=== PATIENT | male | born 1985 | race Caucasian/White ===

== ENCOUNTER 2024-10-16 09:51 | Emergency (ER) | payer BC, SELFPAY ==
[2024-10-16 09:52] VITALS: BP 96/63; PULSE 62; RESP 16; TEMP 36.3; O2SAT 96
--- NOTE | 2024-10-16 10:00 | DI.CT_ITS ---
Exam(s) CT ABDOMEN PELVIS WO EXAM: CT ABDOMEN PELVIS WO CLINICAL HISTORY: left flank pain, eval for stone. TECHNIQUE: Imaging Protocol: Axial computed tomography images with coronal and sagittal reformatted images were created and reviewed CONTRAST MATERIAL: Intravenous: none Oral: None COMPARISON: No exams were available for comparison FINDINGS: VISUALIZED LUNG BASES: No nodules nor pleural effusions evident. ABDOMEN: There is no ascites. LIVER: There are no obvious focal hepatic lesions evident of this noninfused study. GALLBLADDER/BILIARY: No obvious gallbladder pathology. CBD is not dilated. PANCREAS: No evidence of pancreatic mass nor dilatation of the pancreatic duct. SPLEEN: Spleen is not enlarged. No obvious intrasplenic lesions. ADRENALS: There are no significant adrenal masses. KIDNEYS:Bilateral nephrolithiasis. There are tiny punctate calculi in both kidneys. There is also a nother calculus in the proximal left ureter measuring 2-3 mm with mild dilatation left collecting sys tem above this level. The left ureter below this level is not dilated and there are no additional ca lculi seen in the remainder of the left ureter nor in the nondistended urinary bladder lumen. There are no solid renal masses.. ABDOMINAL AORTA: Abdominal aorta is not enlarged. LYMPH NODES: There is no retroperitoneal nor paraaortic adenopathy. ABDOMINAL WALL: No evidence of significant anterior abdominal wall nor inguinal hernia. GI: There is no evidence of bowel obstruction, free air, nor abscess. PELVIS: LYMPH NODES: There is no intrapelvic nor inguinal adenopathy. GI: No evidence of appendicitis.No evidence of sigmoid diverticulitis. URINARY BLADDER: No calculi nor obvious masses evident REPRODUCTIVE: Prostate size normal. OSSEOUS: No significant osseous lesions. IMPRESSION: 1. There is a 3 millimeter calculus in the proximal left ureter with mild dilatation of the left harshil ecting system above this level. There there are 2 remaining punctate present nonobstructive calculi in left kidney and a single punctate nonobstructive calculus in the inferior pole of the opposite-rig ht kidney. 2. Urinary bladder appears unremarkable. RADIATION DOSE DELIVERED: 859.44mGy.cm Total DLP DATA REPOSITORY: All CT scans at this facility are submitted to the National Radiology Data Registry (NRDR) Dose Index Registry (DIR) with the [employer] (A[employer]). RADIATION OPTIMIZATION: All CT scans at this facility use at least one of these dose optimization te chniques: automated exposure control; mA and/or kV adjustment per patient size (includes targeted exa ms where dose is matched to clinical indication); or iterative reconstruction.
--- NOTE | 2024-10-16 10:06 | ED.GENADUL_ITS ---
Discharge Plan Disposition Patient Disposition: Home Condition: Good Discharge Details Clinical Impression: Kidney stone on left side Primary Care Provider: None,None ED Provider: Vince Loomis Home Meds and New Rx's Prescriptions: New tamsulosin [Flomax] 0.4 mg capsule 0.4 mg PO DAILY Qty: 14 0RF ketorolac 10 mg tablet 10 mg PO TID 5 Days Qty: 15 0RF Discharge Instructions Instructions: Kidney Stone Diet, Kidney Stone, Adult ED Additional Instructions: At this time you have evidence of a small kidney stone. This is likely the cause of your symptoms. This should pass within the next 12 to 48 hours, if not earlier. Please drink plenty of fluids, 10 to 12 cups/day at least. Please make sure that you are drinking lemon juice with each of these. Please take 10mg of Ketorolac every 8 hours and 1000 mg of Tylenol every 6 hours as needed for pain. These are the maximum doses of these medicines. Please take the Flomax as directed. This will help in expediting the passage of your kidney stone. If your pain stops, you can stop taking the Flomax. Please strain your urine to collect the stone. This can then be analyzed by your family doctor. If you do not have resolution of your symptoms after 48 to 72 hours please follow-up closely with your family doctor or return here for reassessment. If you notice any worsening of your symptoms, or any new symptoms such as inability to urinate, vomiting, diarrhea, fever, chills, shortness of breath, chest pain, numbness, weakness, or fainting , please return immediately to the emergency department for reevaluation. Please follow up with your primary care provider as soon as possible for reassessment and reevaluation. As always, it was a pleasure participating in your medical care today. Referrals: Isidro Fernando MD [ [facility] STAFF PHYSICIAN] - [facility] General Date/Time Provider Initiated Documentation: 10/16/24 09:52 . HPI Narrative: 39-year-old male with no significant past medical history who presents today for evaluation of left flank and testicle pain. Patient states that over the last 3 days he has had mild achiness in his left flank, is gradually transition down towards his left testicle. However over the last few hours he has had intermittent episodes of severe pain in the left flank and groin area. It comes and goes in severity. He denies fever or chills. He denies chest pain or shortness of breath. He denies nausea or vomiting. He did state that he got notably sweaty during his last episode of pain. No history of kidney stones. No significant change in diet. Related Data Home Medications ?Medication ?Instructions ?Recorded ?Confirmed ketorolac 10 mg tablet 10 mg PO TID 5 days #15 tabs 10/16/24 tamsulosin 0.4 mg capsule (Flomax) 0.4 mg PO DAILY #14 caps 10/16/24 Previous Rx's ?Medication ?Instructions ?Recorded ketorolac 10 mg tablet 10 mg PO TID 5 days #15 tabs 10/16/24 tamsulosin 0.4 mg capsule (Flomax) 0.4 mg PO DAILY #14 caps 10/16/24 Allergies Allergy/AdvReac Type Severity Reaction Status Date / Time No Known Allergies Allergy Unverified 10/16/24 10:00 General Stated Complaint: Male Reproductive Problem HERIBERTO: 3 Exam Narrative Exam Narrative: 1.Const: Well-nourished, Well-developed, appearing stated age 2.Eyes: PERRL, no conjunctival injection, and symmetrical lids. 3.ENT: Atraumatic external nose and ears. Moist MM. Neck: Symmetric, trachea midline, No thyromegaly. 4.CVS: +S1/S2, Peripheral pulses 2+ and equal in all extremities. Brisk capillary refill in all extremities. 5.RESP: Unlabored respiratory effort. Clear to auscultation bilaterally. No wheezes rales or rhonchi 6.GI: Soft, Nontender/Nondistended, No hepatosplenomegaly. No guarding or rebound. Minimal left CVA tenderness. Genital exam was performed with female nurse Domi at bedside. Normal cremasteric reflex bilaterally. No testicular swelling or tenderness. No hernia. 7.MSK: Normocephalic/Atraumatic, Extremities w/o deformity or ttp No cyanosis or clubbing, Normal movement of all extremities 8.Skin: Warm, Dry. No rashes or lesions. 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 Sensation grossly intact, no focal neurologic deficits. 10.Psych: (AAO) x3. Appropriate mood and affect Course Vital Signs Vital signs: Vital Signs Temperature 36.3 C L 10/16/24 09:52 Pulse 62 10/16/24 09:52 Respiratory Rate 16 10/16/24 09:52 Blood Pressure 96/63 L 10/16/24 09:52 Pulse Oximetry 96 10/16/24 09:52 Temperature 36.3 C L 10/16/24 09:52 Temperature Source Oral 10/16/24 09:52 Pulse 62 10/16/24 09:52 Respiratory Rate 16 10/16/24 09:52 Blood Pressure 96/63 L 10/16/24 09:52 Blood Pressure Position Sitting 10/16/24 09:52 Pulse Oximetry 96 10/16/24 09:52 Oxygen Delivery Method Room Air 10/16/24 09:52 Oxygen Flow Rate 0 10/16/24 09:52 Pain Level 6 10/16/24 09:52 Comment ibuprofen this morning 10/16/24 09:52 Medical Decision Making 39-year-old male with no significant past medical history who presents today for evaluation of left flank and testicle pain. Patient states that over the last 3 days he has had mild achiness in his left flank, is gradually transition down towards his left testicle. However over the last few hours he has had intermittent episodes of severe pain in the left flank and groin area. It comes and goes in severity. He denies fever or chills. He denies chest pain or shortness of breath. He denies nausea or vomiting. He did state that he got notably sweaty during his last episode of pain. No history of kidney stones. No significant change in diet. Exam demonstrates well-appearing male, no guarding or rebound. Mild left-sided CVA tenderness. No testicular pain or tenderness. Normal cremasteric reflex bilaterally. No testicular pain or swelling. Symptoms appear inconsistent with torsion, orchitis, or epididymitis. No abdominal pain that is reproducible to suggest diverticulitis. No urethral discharge to suggest UTI. Differential is highest for kidney stone. Will get CT, treat with Toradol and Tylenol, rehydrate, monitor closely and reassess. 12:[address] scan has returned shows evidence of 3 mm obstructing stone in the left proximal ureter with mild left hydroureteronephrosis. Laboratory workup shows no white count bandemia or left shift. Electrolytes normal, glucose unremarkable at 116, transaminases stable, urinalysis shows evidence of blood but no evidence of infection, leuk esterase, nitrates or significant WBCs. A fter morphine Toradol Anthony Mab and Flomax patient is feeling much better. He feels comfortable going home. Will give a home urine strainer. Pain is well- controlled, he is able to tolerate p.o. No indication for admission or IV pain control at this time. Patient will be discharged home with medications of Toradol Flomax and NSAID therapy with recommendations for follow-up with Dr. Fernando. Discussed red flags for which to return. I have extensively reviewed the treatment plan and discharge instructions with the patient and their family. I have addressed all patient concerns at this time. The patient and family was made aware of what symptoms to monitor for that would warrant a return to the emergency department. Discussed the plan with the patient and family, they demonstrate verbal understanding and agreement with our assessment and plan at this time. The documentation in this chart was dictated using [employer] dictation software. Please excuse any dictation errors. FINDINGS: Liver: Hypodense liver lesion in segment 7 of the liver measuring 8 mm, too small to characterize. There is a diffuse decrease in hepatic parenchymal density, consistent with fatty infiltration. Gallbladder and biliary ducts: Normal. No calcified stones. No ductal dilation. Pancreas: Normal. No ductal dilation. Spleen: Normal. No splenomegaly. Adrenal glands: Normal. No mass. Kidneys and ureters: 2 nonobstructing stones in the lower pole of the right kidney measuring up to 2 mm. At least 3 nonobstructing stones in the left kidney measuring to 3 mm in the interpolar region. Simple cyst in the lower pole of the left kidney measuring 1.8 cm. There is an obstructing stone in the proximal left ureter measuring 3 mm with mild left hydroureteronephrosis. No right hydronephrosis. Stomach and bowel: Unremarkable. No obstruction. No mucosal thickening. Appendix: No evidence of appendicitis. Intraperitoneal space: Unremarkable. No free air. No significant fluid collection. Vasculature: Unremarkable. No abdominal aortic aneurysm. Lymph nodes: Unremarkable. No enlarged lymph nodes. Urinary bladder: Unremarkable as visualized. Reproductive: Unremarkable as visualized. Bones/joints: There are mild degenerative changes of the hip joints. Bilateral os acetabula. The lumbar spine demonstrates moderate degenerative changes at multiple levels, most pronounced at L4-L5 with disc bulge causing moderate thecal sac compression. Soft tissues: Unremarkable. IMPRESSION: A 3 mm obstructing stone in the left proximal ureter with mild left hydroureteronephrosis. Thank you for allowing us to participate in the care of your patient. Dictated and Authenticated by: Dillan Pike MD 10/16/2024 11:11 AM Eastern Time ([place] & [place]) Quality:SDOH Health Related Social Needs: No Data to Display PFSH All Active Problems (Updated 10/16/24 @ 12:17 by Vince Loomis DO) Kidney stone on left side (Acute) Social History Smoking/Tobacco Use Status: Never Smoking risk assessment performed?: Yes Drug use: Never Substance use type: does not use Housing: apartment
[2024-10-16 10:28] LABS: Clarity Cloudy (Clear)
[2024-10-16 10:30] LABS: Glucose Negative (Negative); Ketones Negative (Negative); Leukocyte Esterase Negative (Negative); Nitrite Negative (Negative); Specific Gravity >= 1.030 (1.005-1.025)
[2024-10-16 10:31] LABS: Bacteria Negative HPF (Negative); Bilirubin Small (Negative); Blood Large (Negative); C & S Indicated? No; Casts Negative LPF (Negative); Crystals Negative HPF (Negative); Epithelial Cells Negative HPF (Negative); Mucus Trace (Negative); RBC >50 HPF (0-2); Urobilinogen 0.2 mg/dL (Up to 0.2)
[2024-10-16] MEDS: Ketorolac 15 MG/ML VIAL IVP (10:33)
[2024-10-16] MEDS: ACETAMINOPHEN 1,000 MG/100 ML BAG 400 MG IVPB (10:33)
[2024-10-16] MEDS: Normal Saline 1,000 ML 1000 ML IV (10:34)
[2024-10-16 10:36] LABS: Abs Immature Grans 0.05 10^3/uL (0.0-0.06); Absolute Basophil Count 0.06 10^3/uL (0.0-0.2); Absolute Eosinophil Count 0.17 10^3/uL (0.0-0.7); Absolute Lymphocyte Count 2.13 10^3/uL (1.2-3.4); Absolute Monocyte Count 0.41 10^3/uL (0.1-0.8); Absolute Neutrophil Count 3.33 10^3/uL (1.2-6.7); Eosinophils % 2.8 %; HCT 48.1 % (40.0-50.0); HGB 16.9 g/dL (13.5-17.5); Immature Grans % 0.8 %; Lymphocytes % 34.6 %; MCH 31.2 pg (27.0-33.0); MCHC 35.1 % (32.0-36.0); MCV 89 fL (80-95); MPV 10.5 fL (8.0-11.0); Monocytes % 6.7 %; Neutrophils % 54.1 %; Platelet Count 175 10^3/uL (130-400); RBC 5.41 10^6/uL (4.36-5.78); RDW-SD 39.1 fL; WBC 6.15 10^3/uL (4.4-10.8)
[2024-10-16 10:51] LABS: ALT 67 U/L (16-63); AST 22 U/L (15-37); Alkaline Phosphatase 99 U/L (46-116); Anion Gap 3.3 mmol/L (3-11); BUN 15 mg/dL (7-18); Bilirubin, Total 0.67 mg/dL (0.2-1.0); CO2 31.7 mmol/L (21.0-32.0); CREATININE 1.2 mg/dL (0.70-1.30); Calcium 9.9 mg/dL (8.5-10.1); Chloride 108 mmol/L (98-107); Estimated GFR 79.88 (mL/min/1.73m2); Glucose 116 mg/dL (74-106); Potassium 4.2 mmol/L (3.5-5.1); Sodium 143 mmol/L (136-145); Total Protein 7.2 g/dL (6.4-8.2)
--- NOTE | 2024-10-16 11:12 | DI.VRAD_ITS ---
PROCEDURE INFORMATION: Exam: CT Abdomen And Pelvis Without Contrast Exam date and time: 10/16/2024 10:53 AM Age: 39 years old Clinical indication: Other: Left flank pain, eval for stone TECHNIQUE: Imaging protocol: Computed tomography of the abdomen and pelvis without contrast. COMPARISON: No relevant prior studies available. FINDINGS: Liver: Hypodense liver lesion in segment 7 of the liver measuring 8 mm, too small to characterize. There is a diffuse decrease in hepatic parenchymal density, consistent with fatty infiltration. Gallbladder and biliary ducts: Normal. No calcified stones. No ductal dilation. Pancreas: Normal. No ductal dilation. Spleen: Normal. No splenomegaly. Adrenal glands: Normal. No mass. Kidneys and ureters: 2 nonobstructing stones in the lower pole of the right kidney measuring up to 2 mm. At least 3 nonobstructing stones in the left kidney measuring to 3 mm in the interpolar region. Simple cyst in the lower pole of the left kidney measuring 1.8 cm. There is an obstructing stone in the proximal left ureter measuring 3 mm with mild left hydroureteronephrosis. No right hydronephrosis. Stomach and bowel: Unremarkable. No obstruction. No mucosal thickening. Appendix: No evidence of appendicitis. Intraperitoneal space: Unremarkable. No free air. No significant fluid collection. Vasculature: Unremarkable. No abdominal aortic aneurysm. Lymph nodes: Unremarkable. No enlarged lymph nodes. Urinary bladder: Unremarkable as visualized. Reproductive: Unremarkable as visualized. Bones/joints: There are mild degenerative changes of the hip joints. Bilateral os acetabula. The lumbar spine demonstrates moderate degenerative changes at multiple levels, most pronounced at L4-L5 with disc bulge causing moderate thecal sac compression. Soft tissues: Unremarkable. IMPRESSION: A 3 mm obstructing stone in the left proximal ureter with mild left hydroureteronephrosis. Dictated and Authenticated by: Dillan Pike MD. Orderin Ebonie Clarke MD
[2024-10-16] MEDS: MORPHine 4 MG/ML SYR IVP (11:14)
[2024-10-16] MEDS: Tamsulosin 0.4 MG CAPCR PO (11:14)
[2024-10-16] MEDS: MORPHine IR 15 MG TAB, 4 TABS/BTL PO (12:33)
[2024-10-16 12:34] VITALS: BP 120/82; PULSE 62; RESP 16; TEMP 36.3; O2SAT 96
== END 2024-10-16 12:34 | disposition home or self-care (01) ==
PROVIDERS: Emergency Provider Student in an Organized Health Care Education/Training Program
DX: N20.0 Calculus of kidney; N50.812 Left testicular pain; R10.32 Left lower quadrant pain
CPT/HCPCS: 80053; 96365; 96375; 99284; 74176; 81003; 81015; 85025; J0131; J1885; J2270